=== PATIENT | female | born 1960 | race Caucasian/White ===

== ENCOUNTER 2023-01-08 07:42 | Day surgery (SDC) | payer OTHER ==
[2023-01-08] MEDS ORDERED: BUPIVACAINE 0.5% VIAL IJ ONE (07:43)
[2023-01-08] MEDS ORDERED: Depo-Medrol 40 MG/ML IM ONE (07:43)
[2023-01-08] MEDS ORDERED: DIPRIVAN 200 MG/20 ML IV ONE (09:06)
[2023-01-08] MEDS ORDERED: Lactated Ringers 1,000 ML IV ONE (10:42)
--- NOTE | 2023-01-08 12:03 | XRAY ---
Indication: Bilateral SI joint injection. Intraoperative fluoroscopy provided for 16 seconds. 4 digital spot image submitted for interpretation demonstrates posterior needle tip projecting over the left and right SI joint. Correlate with intraoperative findings/report.
--- NOTE | 2023-01-08 12:42 | XRAY ---
16 seconds of fluoroscopy was used in surgery for a bilateral sacroiliac joint injection.
== END 2023-01-08 09:35 | disposition home or self-care (01) ==
LOC: SDC-PAIN 07:42
PROVIDERS: ATTEND Psychiatry & Neurology Pain Medicine
DX: M46.1 Sacroiliitis, not elsewhere classified (principal); E11.9 Type 2 diabetes mellitus without complications; Z79.899 Other long term (current) drug therapy
CPT/HCPCS: 27096; 72202; 77002; 82947; J1030; J2704; G0260

== ENCOUNTER 2023-03-16 12:37 | Emergency (ER) | payer OTHER ==
[2023-03-16] MEDS ORDERED: MORPHINE SULFATE 4 MG INJ IM ONE (12:57)
[2023-03-16] MEDS ORDERED: Norflex 60 MG/2 ML IM ONE (12:58)
[2023-03-16] MEDS ORDERED: Norflex 60 MG/2 ML ONE (13:03)
[2023-03-16] MEDS ORDERED: MORPHINE SULFATE 4 MG INJ ONE (13:04)
[2023-03-16 13:06] VITALS: BP 118/64
[2023-03-16 13:44] VITALS: PULSE 159
[2023-03-16 13:48] VITALS: O2SAT 95
--- NOTE | 2023-03-16 13:48 | ERPHSYRPT ---
- History of Present Illness Time Seen by Provider: 03/16/23 12:46 Source: patient Exam Limitations: no limitations Patient Subjective Stated Complaint: C/O lower back pain that shoots into left leg. Patient states pain started yesterday. Triage Nursing Assessment: Patient is alert and oriented. No SOB. Skin tone normal. No Skin alterations noted to lower back or LLE. Patient is able to bend at left knee. Denies any pain or issues with urination. Patient has a colostomy. Patient states she see's Dr. Davalos for pain management and receives injections in her SI joint. Physician History: 62 years old female with history of chronic back pain, coronary artery disease status post stenting, defibrillator placement, congestive heart failure presented in the ER with chief complaint of left sacroiliac area pain with r adiation to left lower extremity getting worse since yesterday, moderate to severe sharp, making it difficult to ambulate. No numbness or tingling/weakness of lower extremities. She does have some neuropathy in lower extremities from diabetes which is not any worse than usual. Denies any perineal numbness. No loss of bladder control. She does have a colostomy. Patient does follow-up with pain management and has SI joint injections done recently. Denies any fall or trauma. Denies any midline back pain. Allergies/Adverse Reactions: acetaminophen [From Percocet] Allergy (Mild, Verified 03/16/23 12:44) Nausea and Vomiting oxycodone [From Percocet] Allergy (Mild, Verified 03/16/23 12:44) Nausea and Vomiting hydrocodone [From Vicodin] Allergy (Verified 03/16/23 12:44) Nausea and Vomiting Home Medications: Clopidogrel Bisulfate [PLAVIX Tablet] 1 tab PO DAILY 03/16/23 [History] Escitalopram Oxalate [Lexapro] 1 tab PO DAILY 03/16/23 [History] Furosemide [Lasix] 1 tab PO DAILY 03/16/23 [History] Sacubitril/Valsartan [Entresto 97 mg-103 mg Tablet] 1 tab PO BID 03/16/23 [History] Hx Tetanus, Diphtheria Vaccination/Date Given: Yes Hx Influenza Vaccination/Date Given: Yes Immunizations Up to Date: Yes Travel Risk - International Travel Have you traveled outside of the country in past 3 weeks: No - Coronavirus Screening Are you exhibiting any of the following symptoms?: No Close contact with a COVID-19 positive Pt in past 14-21 Days: No - Vaccine Status Have you recieved a Covid-19 vaccination: Yes Television Journalist: Moderna - Vaccination Dates Date of 2cond Vaccination (if applicable): ? - Review of Systems Constitutional: No Symptoms Ears, Nose, & Throat: No Symptoms Respiratory: No Symptoms Cardiac: No Symptoms Abdominal/Gastrointestinal: No Symptoms Genitourinary Symptoms: No Symptoms Musculoskeletal: Back Pain, Joint Pain Skin: No Symptoms Neurological: No Symptoms Psychological: No Symptoms Hematologic/Lymphatic: No Symptoms - Past Medical History Pertinent Past Medical History: Yes Neurological History: Peripheral Neuropathy Cardiac History: Congestive Heart Failure, Coronary Artery Disease, High Cholesterol, Hypertension Endocrine Medical History: Diabetes Type II Musculoskeletal History: Fractures, Osteoarthritis GI Medical History: Hernia Other Medical History: colorectal CA - Past Surgical History Past Surgical History: Yes Cardiac: Cardiac Catheterization, Cardiac Stent, Internal Defibrillator, Pacemaker Gastrointestinal: Hernia Repair Female Surgical History: Hysterectomy Other Surgical History: colostomy, thumbs, carpaltunnel, elbow nerve surgery - Social History Smoking Status: Never smoker Exposure to second hand smoke: No Patient Lives Alone: No - Nursing Vital Signs Nursing Vital Signs: Initial Vital Signs Temperature 97.7 F 03/16/23 12:45 Pulse Rate 80 03/16/23 12:45 Respiratory Rate 18 03/16/23 12:45 Blood Pressure 118/64 03/16/23 12:45 O2 Sat by Pulse Oximetry 95 03/16/23 12:45 Pain Scale Pain Intensity 10 - Physical Exam General Appearance: no apparent distress, alert Eye Exam: PERRL/EOMI Ears, Nose, Throat Exam: normal ENT inspection Neck Exam: normal inspection, full range of motion Respiratory Exam: normal breath sounds, lungs clear Cardiovascular Exam: regular rate/rhythm, normal heart sounds Gastrointestinal Exam: soft, normal bowel sounds, other (Ostomy bag well in place), No tenderness Back Exam: normal inspection, point tenderness (Left sacroiliac area. Intact sensations of fine and crude touch/pain lower extremity. No weakness.), No CVA tenderness, No vertebral tenderness Extremity Exam: normal inspection, normal range of motion Neurologic Exam: alert, oriented x 3, cooperative Skin Exam: normal color SpO2 Interpretation: normal SpO2: 95 O2 Delivery: Room Air Ordered Tests: Medication Summary Discontinued Medications Generic Name Dose Route Start Last Admin Trade Name Freq PRN Reason Stop Dose Admin Morphine Sulfate 4 mg 03/16/23 12:57 03/16/23 13:09 Morphine Sulfate 4 Mg/Ml Injection IM 03/16/23 12:58 4 mg STAT ONE Administration Morphine Sulfate Confirm 03/16/23 13:04 Morphine Sulfate 4 Mg/Ml Injection Administered 03/16/23 13:05 Dose 4 mg .ROUTE .STK-MED ONE Orphenadrine Citrate 60 mg 03/16/23 12:58 03/16/23 13:07 Orphenadrine Citrate 60 Mg/2 Ml Vial IM 03/16/23 12:59 60 mg STAT ONE Administration Orphenadrine Citrate Confirm 03/16/23 13:03 Orphenadrine Citrate 60 Mg/2 Ml Vial Administered 03/16/23 13:04 Dose 60 mg .ROUTE .STK-MED ONE - Progress Progress: improved, pain not gone completely Progress Note: 03/16/23 13:50 62 years old female with history of chronic back pain, coronary artery disease status post stenting, defibrillator placement, congestive heart failure presented in the ER with chief complaint of left sacroiliac area pain with radiation to left lower extremity getting worse since yesterday, moderate to severe sharp, making it difficult to ambulate. No numbness or tingling/weakness of lower extremities. She does have some neuropathy in lower extremities from diabetes which is not any worse than usual. Denies any perineal numbness. No loss of bladder control. She does have a colostomy. Patient does follow-up with pain management and has SI joint injections done recently. Denies any fall or trauma. Denies any midline back pain. She has no signs of cauda equina. Intact neuro exam in lower extremities. No midline tenderness. I believe patient has low back strain causing worsening of SI joint issues. I have given her morphine and orphenadrine, on reevaluation her mobility is much improved. She is feeling much better. I would give her few tramadol's and Flexeril to go home and patient does have appointment in 3 days with pain management which she is advised to keep. Discussed signs symptoms of worsening needing return to ER which she seems understanding. Stable for discharge. Counseled pt/family regarding: diagnosis, need for follow-up Medical Desision Making - Independent Historian Additional History obtained from: Spouse - Risk of complications The pt has a mod risk of morbidity or mortality based on: Need for prescription drug management - Departure Departure Disposition: Home Clinical Impression: Acute exacerbation of chronic low back pain Condition: Stable Critical Care Time: No Referrals: ANTONIETTA FENG [Primary Care Provider] - Follow up with PCP 1 day YAHAIRA DAVALOS MD [CONSULTING PHYSICIAN] - Follow up/PCP as directed (Call tomorrow) Instructions: Low Back Pain (DC), Sciatica (DC) Additional Instructions: Follow-up with your primary care and pain management for reevaluation. Take pain medications and muscle relaxants as needed. Use cane/walker for ambulation to avoid a fall. Return to ER for intractable low back pain, numbness tingling weakness of lower extremities/perineal numbness or loss of bladder control etc. Prescriptions: Tramadol HCl 50 mg [Ultram 50 mg] 50 mg PO Q6HPRN PRN 3 Days #12 tablet PRN Reason: Pain Cyclobenzaprine HCl 10 mg [Flexeril 10 MG] 10 mg PO TID #12 tablet
== END 2023-03-16 14:16 | disposition home or self-care (01) ==
LOC: ED 12:37
DX: G89.29 Other chronic pain (principal); M54.50 Low back pain, unspecified; M53.3 Sacrococcygeal disorders, not elsewhere classified; E11.42 Type 2 diabetes mellitus with diabetic polyneuropathy; E78.5 Hyperlipidemia, unspecified; I11.0 Hypertensive heart disease with heart failure; I50.9 Heart failure, unspecified; Z79.02 Long term (current) use of antithrombotics/antiplatelets; Z79.891 Long term (current) use of opiate analgesic; Z79.899 Other long term (current) drug therapy
CPT/HCPCS: 96372; 99283; J2270; J2360

== ENCOUNTER 2023-04-02 07:18 | Day surgery (SDC) | payer OTHER ==
[2023-04-02] MEDS ORDERED: Depo-Medrol 40 MG/ML IM ONE (07:19)
[2023-04-02] MEDS ORDERED: Sodium Chloride 0.9(Preservative Free) 10 ML IJ ONE (07:19)
[2023-04-02] MEDS ORDERED: DIPRIVAN 200 MG/20 ML IV ONE ×2 (09:17→09:31)
[2023-04-02] MEDS ORDERED: MORPHINE SULFATE 2 MG INJ ONE ×2 (09:41→09:53)
--- NOTE | 2023-04-02 10:47 | XRAY ---
Indication: Left L3-L5 transforaminal MARIELY. Intraoperative fluoroscopy provided for 65 seconds. 6 digital spot image submitted for interpretation demonstrates posterior needle tips projecting over the expected left L3 and L4 nerve roots. Small amount of contrast injected for needle tip placement. Correlate with intraoperative findings/report.
[2023-04-02] MEDS ORDERED: Lactated Ringers 1,000 ML IV ONE (11:14)
--- NOTE | 2023-04-02 11:59 | XRAY ---
One minute and 5 seconds of fluoroscopy was used in surgery for a left L3-L5 transforaminal MARIELY.
== END 2023-04-02 10:05 | disposition home or self-care (01) ==
LOC: SDC-PAIN 07:18
PROVIDERS: ATTEND Psychiatry & Neurology Pain Medicine
DX: M54.16 Radiculopathy, lumbar region (principal); E11.9 Type 2 diabetes mellitus without complications; Z79.899 Other long term (current) drug therapy
CPT/HCPCS: 64483; 64484; 72100; 77003; 82947; J1030; J2270; J2704; Q9966

== ENCOUNTER 2024-11-24 06:34 | Day surgery (SDC) | payer OTHER ==
[2024-11-24] MEDS ORDERED: Depo-Medrol 40 MG/ML IM ONE (06:35)
[2024-11-24] MEDS ORDERED: BUPIVACAINE 0.5% VIAL IJ ONE (06:35)
[2024-11-24] MEDS ORDERED: propofoL IV ONE (08:37)
--- NOTE | 2024-11-24 10:22 | XRAY ---
Indication: Bilateral SI joint injection. Intraoperative fluoroscopy provided for 24 seconds. 2 digital spot images submitted for interpretation demonstrates posterior needle tips projecting over left and right SI joints. Small amount of contrast injected for needle tip placement. Correlate with intraoperative findings/report.
--- NOTE | 2024-11-24 10:26 | XRAY ---
24 seconds of fluoroscopy was used in surgery for a bilateral sacroiliac joint injection.
== END 2024-11-24 09:12 | disposition home or self-care (01) ==
LOC: SDC-PAIN 06:34
PROVIDERS: ATTEND Psychiatry & Neurology Pain Medicine
DX: M46.1 Sacroiliitis, not elsewhere classified (principal); E11.9 Type 2 diabetes mellitus without complications
CPT/HCPCS: 27096; 72202; 82947; J2704; Q9966

== ENCOUNTER 2025-07-14 08:46 | Day surgery (SDC) | payer MEDICARE, OTHER ==
[2025-07-14] MEDS ORDERED: BUPIVACAINE 0.5% VIAL IJ ONE (08:47)
[2025-07-14] MEDS ORDERED: methylPREDNISolone acetate IM ONE (08:47)
[2025-07-14] MEDS ORDERED: propofoL IV ONE (10:41)
[2025-07-14] MEDS ORDERED: Lactated Ringers 1,000 ML IV ONE (11:04)
--- NOTE | 2025-07-14 12:09 | XRAY ---
Indication: Left greater trochanter bursa injection. Intraoperative fluoroscopy provided for 7 seconds. Single digital spot image submitted for interpretation demonstrates needle tip projecting lateral to left greater trochanter. Small amount of contrast injected for needle tip placement. Correlate with intraoperative findings/report.
--- NOTE | 2025-07-14 17:00 | XRAY ---
7 seconds of fluoroscopy was used in surgery for a left greater trochanteric bursa injection.
== END 2025-07-14 11:15 | disposition home or self-care (01) ==
LOC: SDC-PAIN 08:46
PROVIDERS: ATTEND Psychiatry & Neurology Pain Medicine
DX: M16.12 Unilateral primary osteoarthritis, left hip (principal); E11.9 Type 2 diabetes mellitus without complications